=== PATIENT | female | born 1980 | race Caucasian/White ===

== ENCOUNTER 2024-02-29 12:00 | Emergency (ER) | payer BC, OTHER, SELFPAY ==
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
[2024-02-29 12:11] VITALS: BP 119/74; PULSE 70; RESP 18; TEMP 36.4; O2SAT 99; BMI 22.2
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
== END 2024-02-29 14:32 | disposition left against medical advice (07) ==
PROVIDERS: Emergency Provider Emergency Medicine
DX: S09.93XA Unspecified injury of face, initial encounter (principal); Y04.8XXA Assault by other bodily force, initial encounter; R51.9 Headache, unspecified; Z53.21 Procedure and treatment not carried out due to patient leaving prior to being seen by health care provider; Z72.89 Other problems related to lifestyle; Z63.0 Problems in relationship with spouse or partner; Y93.9 Activity, unspecified; Y92.9 Unspecified place or not applicable; Y99.9 Unspecified external cause status
CPT/HCPCS: 70450; 70486; 72125; 99281; 99284

== ENCOUNTER 2024-08-30 13:56 | Outpatient (REF) | payer BC, OTHER, SELFPAY ==
[2024-08-30 15:14] LABS: MANUAL DIFF FLAG NO
[2024-08-30 15:42] LABS: Basophils Absolute Auto 0.1 X10*3/uL (0.0-0.2); Basophils Percent Auto 0.7 % (0-2); Eosinophils Absolute Auto 0.1 X10*3/uL (0.0-0.4); Hematocrit 37.7 % (37.0-47.0); Hemoglobin 12.7 g/dl (12.0-16.0); Imm Gran Abs Auto 0.01 X10*3/uL (0.00-0.03); Imm Gran Pct Auto 0.1 % (0.0-0.4); Lymphocytes Absolute Auto 1.9 X10*3/uL (1.2-4.9); Lymphocytes Percent Auto 27.7 % (20-40); Mean Corpuscular HGB Conc 33.7 g/dl (31.0-35.0); Mean Corpuscular Hemoglobin 31.9 pg (27.0-33.0); Mean Corpuscular Volume 94.7 fL (80.0-98.0); Mean Platelet Volume 11.3 fL (9.4-12.3); Monocytes Absolute Auto 0.5 X10*3/uL (0.1-1.2); Monocytes Percent Auto 7.3 % (2-11); Neutrophils Absolute Auto 4.4 x10*3/uL (2.0-8.3); Neutrophils Percent Auto 63.2 % (45-73); Platelet Count 230 X10*3/uL (160-400); Red Blood Count 3.98 X10*6/uL (4.20-5.50); Red Cell Distribution Width 12.7 % (11.0-16.0)
[2024-08-30 15:50] LABS: Appearance Urine Clear; Color Urine Dark Yellow; Glucose Urine UA Negative (Negative); Leukocyte Esterase Urine Negative (Negative); Nitrite Urine Negative (Negative); PH 5.5 (5.0-9.0); Specific Gravity - Urine >= 1.030 (1.005-1.025); Urine Blood Negative (Negative); Urine Ketones Trace mg/dL (Negative); Urine Protein Negative (Neg-Trace)
[2024-08-30 15:52] LABS: Amphetamine Screen Urine Not Detected (Not Detect); Barbiturates, Urine Not Detected (Not Detect); Benzodiazepines Screen Urine Not Detected (Not Detect); Buprenorphine Scr Not Detected (Not Detect); Cannabinoid Screen Urine Not Detected (Not Detect); Cocaine Screen Urine Not Detected (Not Detect); Fentanyl, urine Not Detected (Not Detect); Methadone Screen, Urine Not Detected (Not Detect); Opiate Screen Urine Not Detected (Not Detect); Oxycodone Screen Urine Not Detected (Not Detect); Phencyclidine Screen Urine Not Detected (Not Detect)
[2024-08-30 15:55] LABS: Bacteria Urine 2+ (None Seen); WBC Urine 0-5 /HPF (0-5)
[2024-08-30 15:57] LABS: RBC Urine 0-2 /HPF (0-2)
[2024-08-30 16:08] LABS: Alanine Aminotransferase 13 U/L (0-31); Albumin Level 4.1 g/dL (3.5-5.0); Alkaline Phosphatase 65 U/L (39-117); Anion Gap 15 (12-20); Aspartate Amino Transferase 24 U/L (5-31); Bilirubin Total 0.5 mg/dL (0.0-1.0); Blood Urea Nitrogen 12 mg/dL (9-16); C Reactive Protein 0.14 mg/dL (< or = 0.50); Calcium 8.7 mg/dL (8.4-10.2); Carbon Dioxide 23 mmol/L (22-29); Chloride 106 mmol/L (96-108); Estimated Glomerular Filt Rate > 60; Glucose Random 83 mg/dL (60-115); Potassium 3.7 mmol/L (3.3-5.1); Sodium 140 mmol/L (135-145); Total Protein 7.5 g/dL (6.5-8.0)
[2024-08-30 16:10] LABS: Creatinine Urine 337.26 mg/dL; Protein/Creatinine Ratio, Ur 0.04 (<0.2); Total Protein Urine Random 14 mg/dL (<12)
[2024-08-30 16:32] LABS: Erythrocyte Sedimentation Rate 7 MM/HR (0-20)
[2024-08-31 07:58] LABS: Syphilis Screen Nonreactive (Nonreactive)
[2024-09-01 06:53] LABS: Myeloperoxidase Antibody <1.0 AI; Proteinase 3 PR3 Antibodies <1.0 AI
[2024-09-01 22:43] LABS: TS Negative Control Passed; TS Panel A 0; TS Panel B 0; TS Positive Control Passed; TSpotTB Negative (Negative)
[2024-09-03 22:49] LABS: Angiotensin Converting Enzyme 29.4 U/L (9-67)
== END 2024-08-30 13:57 | disposition home or self-care (01) ==
LOC: HO.LAB 13:56
PROVIDERS: Visit Provider Student in an Organized Health Care Education/Training Program
DX: I77.6 Arteritis, unspecified (principal); J34.89 Other specified disorders of nose and nasal sinuses
CPT/HCPCS: 80053; 80307; 81001; 82164; 82570; 84156; 85025; 85652; 86021; 86140; 86481; 86780

== ENCOUNTER 2024-08-30 13:56 | Outpatient (AMB) | payer BC, OTHER, SELFPAY ==
[2024-08-30 14:01] VITALS: BP 102/60; PULSE 91; BMI 20.7
--- NOTE | 2024-08-30 14:01 | MHC.OFFVIS ---
Vital Signs 08/30/24 14:01 Height 5 ft 7 in Weight 132 lb 4.691 oz BMI 20.7 BP 102/60 Blood Pressure Location Lt brachial Position Sitting Pulse 91 Pulse Source Pulse Oximeter Intake Visit Reasons: ? Vasculitis Intake Note: New patient present today to rule out Vasculitis Where? nasal septum How long? Approx 4 years Medication used? Surgery x2 January 10, 2023, September 2021 Pain? No pain, bleeding and crusting Resident Intern Required: No Accompanied by: Self / Same As Patient Allergies bee pollen [BEE STINGS] Allergy (Severe, Verified 08/30/24 14:05) ANAPHYLAXIS Iodinated Contrast Media [CONTRAST, IV] Allergy (Severe, Verified 08/30/24 14:05) ANAPHYLAXIS nifedipine [From PROCARDIA] Allergy (Severe, Verified 08/30/24 14:05) gums swell Sulfa (Sulfonamide Antibiotics) [SULFA (SULFONAMIDE ANTIBIOTICS)] Allergy (Intermediate, Verified 08/30/24 14:05) hives Bee (insect) Allergy (Unknown, Uncoded 08/30/24 14:05) anaphylaxis Contrast Allergy PreMed Pack Allergy (Unknown, Uncoded 08/30/24 14:05) anaphylaxis Contrast-Gadolinium and Iodina Allergy (Unknown, Uncoded 08/30/24 14:05) anaphylaxis Medication List - Last Reconciled 08/30/24 by Alyssa Blanco MD buspirone 15 mg PO BID escitalopram oxalate 20 mg PO DAILY prazosin 1 mg PO BEDTIME HPI Comments Details: Patient is a 44 y.o. female with Celiac disease currently managed with diet, Raynaud's, and Narrow angle glaucoma. Patient states that in 10/19/2021 she noted she heard a whistling sound coming from her nose. When she investigated she saw a hole in her nasal septum. She went to the ENT doctor and was told that we will just monitor the perforation which should heal. However it progressed and in early 2021 she had nasal septal repair. Unfortunately this broke down and she had a subsequent nasal septal repair in December of 2022. Pathology done showed necrotic debris as well as neutrophil infiltrate but this was nonspecific. She does report fatigue however denies weight loss, inflammation involving the cartilage of her ears, hoarseness or inflammation involving the throat, hemoptysis, kidney involvement, fevers. She denies a history of cocaine use. Denies history of Afrin or corticosteroid nasal spray use. Has a history of chlamydia and HPV infection but denies a history of syphilis. Has never been incarcerated or known TB exposure. , 1 blighted ovum. No hx of pre eclampsia. FOR[facility]LY [facility], [facility] Medical History (Updated 08/30/24 @ 15:28 by Alyssa Blanco MD) Nasal septal perforation Surgical History (Updated 08/30/24 @ 14:18 by DEBBIE Mueller) History of surgery History of dilatation and curettage Hx of section Family History Mother Diabetes Myasthenia gravis Father High blood pressure Social History Alcohol intake: current Comment: Barely Patient Tobacco Use Status: Never used Tobacco Review of Systems Const Details: Review of Systems Constitutional: Denies fever, chills, weight loss ENT: Denies vision changes, eye pain or eye redness, dental caries, dry mouth GI: Denies nausea, vomiting, diarrhea, abdominal pain, change in BM Pulm: Denies SOB, WINSTON, hemoptysis, wheezing Cards: Denies chest pain, palpitations Skin: Denies Raynaud's, rash, nail changes, photosensitivity, BITUMINOUS PAVING MACHINE OPERATOR: Denies headaches, weakness, paresthesias, recurrent falls MSK: as per HPI All other systems reviewed and are unremarkable except noted above Physical Exam Vital Signs: BMI result Body Mass Index 22.3 Physical Examination CONSTITUITIONAL Patient alert and cooperative. Well appearing and in no apparent painful distress HEENT Conjunctiva and sclera clear. ?Pupils equal round and reactive to light. ?No lymphadenopathy. ?Normal dentition. No oral or nasal ulcers noted. No evidence of discoid rash to the mendy of ears CHEST/RESPIRATORY SYSTEM Normal respiratory effort and able to speak in complete sentences. ?Clear to auscultation bilaterally. ?No crackles, rales, rhonchi, wheezes heard. CARDIAC SYSTEM Regular rate and rhythm. ?S1 and S2 heard no murmurs. ?Radial pulses intact bilaterally MSK Hands: ?Good conveyor attendant strength bilaterally - 5/5. ?No deformities noted. ?No synovitis noted to the MCPs, PIPs or DIPs. ?No tenderness to palpation of these joints. Wrists: ?Full range of motion at the wrists without pain. ?No tenderness to palpation or synovitis noted to the wrists. Elbows: Full range of motion without pain. No tenderness, weakness, swelling, increased warmth or erythema. Shoulders: Full range of motion without pain. No tenderness, weakness, swelling, increased warmth or erythema. Hips: Full range of motion without pain. Hip bursa: No tenderness to palpation Knees: ?Full range of motion. ?No tenderness, swelling, increased warmth or erythema.?No effusion or crepitations Ankles: Full range of motion. ?No tenderness, swelling, increased warmth or erythema.? Feet: ?Negative squeeze test. ?No tenderness to palpation or swelling of the MTPs. Tender points:??No tenderness to palpation of the neck, shoulders, chest, elbows, hips, buttocks or knees. SKIN Skin intact without rashes. Normal nail fold capillaries Results Reviewed Results Reviewed: Results reviewed on patient's MyChart. Anca negative, PR3 and MPO negative. CHRISTIE 1:80. ESR and CRP normal. Pathology showed neutrophilic infiltration and necrosis but otherwise nonspecific findings. Assessment & Plan Assessment & Plan (1) Nasal septal perforation: Code(s): J34.89 - Other specified disorders of nose and nasal sinuses Category: Medical Plan: #Recurrent nasal septal perforation Patient with recurrent nasal septal perforation in the setting of a negative ANCA. Differentials include infection (TB, syphilis), autoimmune (gpa, EPA, relapsing polychondritis, Behcet's, sarcoidosis), malignancy, drugs including cocaine and topical steroids or Afrin. Even though she has negative ANCA was the fact that she has had breakdown of her nasal septum after repair x2 is very suspicious for a vasculitic process. We will evaluate her further by checking a CT scan to look for any cavitating lesions, PFTs to rule out tracheal stenosis, repeat her blood work. I contacted Dr. Christiane Jean a vasculitis expert out of [facility] and discussed the case with her. She said that this may be a case of ANCA negative vasculitis and it may be beneficial to start the patient on rituximab and then send her to get repair of her nasal septum. She also mentioned juan manuel Vila syndrome which is a disorder involving patients with celiac disease presenting with hemoptysis. We will consider this and discuss it with patient at next visit. Plan I spent 60 minutes reviewing the record and labs, seeing the patient, discussing the treatment plan, contacting vasculitis expert and discussing the case and documenting in the medical record Orders: Orders CT chest wo con - High Res Today I77.6 - Arteritis, unspecified Erythrocyte Sedimentation Rate Today I77.6 - Arteritis, unspecified ANCA Vasculitides Today I77.6 - Arteritis, unspecified Myeloperoxidase Antibody Today I77.6 - Arteritis, unspecified Syphilis Screen Today I77.6 - Arteritis, unspecified Protein Creatinine Ratio, Ur Today I77.6 - Arteritis, unspecified PFT pulmonary function test Today I77.6 - Arteritis, unspecified Comprehensive Met. Panel Today I77.6 - Arteritis, unspecified Complete Blood Count Auto Diff Today I77.6 - Arteritis, unspecified C Reactive Protein Today I77.6 - Arteritis, unspecified Proteinase 3 PR3 Antibodies Today I77.6 - Arteritis, unspecified Angiotensin Converting Enzyme Today I77.6 - Arteritis, unspecified T Spot TB Today I77.6 - Arteritis, unspecified UA w Microscopic Today I77.6 - Arteritis, unspecified Drug Screen Urine Today I77.6 - Arteritis, unspecified Coding Level of Care Code New Pt Level 5 (11056) Complex EM visit Add On G2211 Diagnoses Nasal septal perforation J34.89
== END 2024-08-30 14:43 | disposition home or self-care (01) ==
PROVIDERS: Visit Provider Student in an Organized Health Care Education/Training Program
DX: J34.89 Other specified disorders of nose and nasal sinuses (principal)
CPT/HCPCS: 99205

== ENCOUNTER 2024-09-28 10:50 | Outpatient (REF) | payer BC, OTHER, SELFPAY ==
--- NOTE | ~2024-09-28 | CT_ITS ---
EXAMINATION: CT CHEST WITHOUT CONTRAST CLINICAL INFORMATION: Arteritis. COMPARISON: None TECHNIQUE: Multidetector volumetric CT imaging of the chest was performed without intravenous contrast. Axial MIP volume rendering provided. Sagittal and coronal reformatted images were obtained. This CT examination was performed using dose optimization techniques as appropriate, variously including the following: *Automated exposure control *Adjustment of mA and/or kV according to patient size (this includes techniques or standardized protocols for targeted exams where dose is matched to indication/reason for exam; i.e. extremities or head) *Use of iterative reconstruction technique DLP: 169 mGy-cm FINDINGS: LUNGS: The lungs appear clear. No evidence of inflammation or nodules. MEDIASTINUM: The mediastinum appears unremarkable. CORONARY ARTERY CALCIFICATION: None. PLEURA: There is no pleural effusion. No pleural mass or thickening. AXILLA: No lymphadenopathy by size criteria. UPPER ABDOMEN: Unremarkable OSSEOUS STRUCTURES: Unremarkable. CT/CT chest wo con - High Res IMPRESSION: Normal CT scan of the chest without contrast. Electronically signed by: Arya Santos MD 10/01/2024 09:35 AM [facility]
== END 2024-09-28 10:51 | disposition home or self-care (01) ==
LOC: HO.CT 10:50
PROVIDERS: Visit Provider Student in an Organized Health Care Education/Training Program
DX: I77.6 Arteritis, unspecified (principal)
CPT/HCPCS: 71250

== ENCOUNTER 2024-10-04 15:46 | Outpatient (REF) | payer BC, OTHER, SELFPAY ==
[2024-10-22 11:31] LABS: TPMT Genotype NEGATIVE
== END 2024-10-04 15:47 | disposition home or self-care (01) ==
LOC: HO.LAB 15:46
PROVIDERS: Visit Provider Student in an Organized Health Care Education/Training Program
DX: I77.6 Arteritis, unspecified (principal)
CPT/HCPCS: 36415; 81335

== ENCOUNTER 2024-10-04 15:46 | Outpatient (AMB) | payer BC, OTHER, SELFPAY ==
--- NOTE | 2024-10-04 15:52 | MHC.OFFVIS ---
Vital Signs 10/04/24 15:58 Height 5 ft 7 in Weight 141 lb 15.643 oz BMI 22.2 BP 100/70 Blood Pressure Location Lt brachial Position Sitting Pulse 83 Pulse Source Pulse Oximeter Intake Visit Reasons: Follow up Intake Note: Patient present today for Nasal septal perforation. Supervisor Loading Required: No Accompanied by: Self / Same As Patient Allergies bee pollen [BEE STINGS] Allergy (Severe, Verified 10/04/24 15:59) ANAPHYLAXIS Iodinated Contrast Media [CONTRAST, IV] Allergy (Severe, Verified 10/04/24 15:59) ANAPHYLAXIS nifedipine [From PROCARDIA] Allergy (Severe, Verified 10/04/24 15:59) gums swell Sulfa (Sulfonamide Antibiotics) [SULFA (SULFONAMIDE ANTIBIOTICS)] Allergy (Intermediate, Verified 10/04/24 15:59) hives Bee (insect) Allergy (Unknown, Uncoded 10/04/24 15:59) anaphylaxis Contrast Allergy PreMed Pack Allergy (Unknown, Uncoded 10/04/24 15:59) anaphylaxis Contrast-Gadolinium and Iodina Allergy (Unknown, Uncoded 10/04/24 15:59) anaphylaxis Medication List - Last Reconciled 10/04/24 by Alyssa Blanco MD buspirone 15 mg PO BID escitalopram oxalate 20 mg PO DAILY prazosin 1 mg PO BEDTIME HPI Comments Details: Patient is a 44 y.o. female with Celiac disease currently managed with diet, Raynaud's, narrow angle glaucoma and recurrent nasal septum perforation who presents for follow up Interval History: Patient last seen 08/30/2024 with me. At that time she was presenting for evaluation of recurrent nasal septal perforation Exam and labs did not reveal any objective measures for vasculitis. However after discussion with Dr. Christiane Jean the head of the vasculitis department at [facility] decision made to treat patient as presumed vasculitis Patient here today no new complaints Rheumatologic History: Initial History Patient states that in 10/19/2021 she noted she heard a whistling sound coming from her nose. When she investigated she saw a hole in her nasal septum. She went to the ENT doctor and was told that we will just monitor the perforation which should heal. However it progressed and in early 2021 she had nasal septal repair. Unfortunately this broke down and she had a subsequent nasal septal repair in December of 2022. Pathology done showed necrotic debris as well as neutrophil infiltrate but this was nonspecific. She does report fatigue however denies weight loss, inflammation involving the cartilage of her ears, hoarseness or inflammation involving the throat, hemoptysis, kidney involvement, fevers. She denies a history of cocaine use. Denies history of Afrin or corticosteroid nasal spray use. Has a history of chlamydia and HPV infection but denies a history of syphilis. Has never been incarcerated or known TB exposure. , 1 blighted ovum. No hx of pre eclampsia. Current Rheumatology Medication(s): [facility] Medical History (Updated 10/04/24 @ 16:19 by Alyssa Blanco MD) Vasculitis Nasal septal perforation Surgical History History of surgery History of dilatation and curettage Hx of section Family History Mother Diabetes Myasthenia gravis Father High blood pressure Social History Alcohol intake: current Comment: Barely Patient Tobacco Use Status: Never used Tobacco Review of Systems Const Details: Review of Systems Constitutional: Denies fever, chills, weight loss ENT: Denies vision changes, eye pain or eye redness, dental caries, dry mouth GI: Denies nausea, vomiting, diarrhea, abdominal pain, change in BM Pulm: Denies SOB, WINSTON, hemoptysis, wheezing Cards: Denies chest pain, palpitations Skin: Denies Raynaud's, rash, nail changes, photosensitivity, TOOL AND DIE MANAGER: Denies headaches, weakness, paresthesias, recurrent falls MSK: as per HPI All other systems reviewed and are unremarkable except noted above Physical Exam Vital Signs: BMI result Body Mass Index 22.2 Physical Examination CONSTITUITIONAL Patient alert and cooperative. Well appearing and in no apparent painful distress HEENT Conjunctiva and sclera clear. ?Pupils equal round and reactive to light. ?No lymphadenopathy. ?Normal dentition. No oral or nasal ulcers noted. No evidence of discoid rash to the mendy of ears CHEST/RESPIRATORY SYSTEM Normal respiratory effort and able to speak in complete sentences. ?Clear to auscultation bilaterally. ?No crackles, rales, rhonchi, wheezes heard. CARDIAC SYSTEM Regular rate and rhythm. ?S1 and S2 heard no murmurs. ?Radial pulses intact bilaterally MSK Hands: ?Good field health officer strength bilaterally - 5/5. ?No deformities noted. ?No synovitis noted to the MCPs, PIPs or DIPs. ?No tenderness to palpation of these joints. Wrists: ?Full range of motion at the wrists without pain. ?No tenderness to palpation or synovitis noted to the wrists. Elbows: Full range of motion without pain. No tenderness, weakness, swelling, increased warmth or erythema. Shoulders: Full range of motion without pain. No tenderness, weakness, swelling, increased warmth or erythema. Hips: Full range of motion without pain. Hip bursa: No tenderness to palpation Knees: ?Full range of motion. ?No tenderness, swelling, increased warmth or erythema.?No effusion or crepitations Ankles: Full range of motion. ?No tenderness, swelling, increased warmth or erythema.? Feet: ?Negative squeeze test. ?No tenderness to palpation or swelling of the MTPs. Tender points:??No tenderness to palpation of the neck, shoulders, chest, elbows, hips, buttocks or knees. SKIN Skin intact without rashes. Normal nail fold capillaries Results Reviewed Results Reviewed: Laboratory Tests 08/30/24 08/30/24 15:06 15:11 WBC 7.0 RBC 3.98 L Hgb 12.7 Hct 37.7 Plt Count 230 ESR 7 Sodium 140 Potassium 3.7 Chloride 106 Carbon Dioxide 23 BUN 12 Creatinine 0.86 Angiotensin Convert Enz 29.4 Proteinase 3 (PR3) Ab <1.0 Myeloperoxidase Ab <1.0 Assessment & Plan Assessment & Plan (1) Vasculitis: Code(s): I77.6 - Arteritis, unspecified Category: Medical Plan: #Presumed Vasculitis Given the patient's history of recurrent nasal septal perforation in the absence of infection or malignancy vasculitis is the most likely underlying diagnosis. Unfortunately we have not been able to confirm this with blood work or pathology given that her last pathology was several years ago and that report is no longer available to us. Discussed the case with Dr. Christiane Jean head of vasculitis Center at [facility] in the [place] and she agrees that this is definitely a case of likely vasculitis. Treatment options include rituximab, methotrexate, azathioprine, mycophenolate, cyclophosphamide. At this time I think we will go forward with azathioprine. Plan to find a plastic surgeon or ENT surgeon who is willing to repair her defect. Under the coverage of steroids and azathioprine I really believe that the repair we will hold this time Plan - Azathioprine 125mg daily - Check TPMT Enzyme - ENT/Plastic surgery referral Plan I spent 30 minutes reviewing the record and labs, seeing the patient, discussing the treatment plan and documenting in the medical record ? Orders: Orders [facility] TPMT Enzyme Today I77.6 - Arteritis, unspecified TPMT Genetic Test Today I77.6 - Arteritis, unspecified Referrals Plastic Surgery Referral I77.6 - Arteritis, unspecified, J34.89 - Other specified disorders of nose and nasal sinuses Medications: New azathioprine 100 mg PO DAILY 90 tabs 1RF I77.6 - Arteritis, unspecified azathioprine 25 mg (1/2 x 50 mg) PO DAILY 90 tabs 1RF I77.6 - Arteritis, unspecified Coding Level of Care Code Est Pt Level 4 (93044) Complex EM visit Add On G2211 Diagnoses Vasculitis I77.6
[2024-10-04 15:58] VITALS: BP 100/70; PULSE 83; BMI 22.2
== END 2024-10-04 16:32 | disposition home or self-care (01) ==
PROVIDERS: Visit Provider Student in an Organized Health Care Education/Training Program
DX: I77.6 Arteritis, unspecified (principal)
CPT/HCPCS: 99214